=== PATIENT | female | born 1945 | race Caucasian/White ===

== ENCOUNTER 2021-10-06 05:10 | Emergency (ER) | payer MEDICARE, BC ==
[2021-10-06] MEDS ORDERED: Morphine 4 MG/ML VIAL IVPUSH STA ×2 (05:16→05:52)
[2021-10-06] MEDS ORDERED: Pantoprazole 80 MG in Sodium Chloride 0.9% 10 ML IVPUSH ONE (05:17)
[2021-10-06] MEDS ORDERED: Alum Hydro/Mag Hydro/Simeth XS 15 ML, Lidocaine 2% 5 ML PO ONE ×2 (05:17)
[2021-10-06] MEDS ORDERED: Ondansetron 4 MG/2 ML SDV IVPUSH ONE (05:22)
[2021-10-06] MEDS ORDERED: Lactated Ringers 1,000 ML IV STA (05:29)
[2021-10-06 05:55] LABS: BLOOD UREA NITROGEN,BUN 12 mg/dL (7.0-18.0); CARBON DIOXIDE,CO2 24.3 mmol/L (21.0-32.0); CHLORIDE,CL 101 mmol/L (98-107); GLUCOSE RANDOM 144 mg/dL (74-106); POTASSIUM,K 3.6 mmol/L (3.5-5.1); SODIUM,NA 133 mmol/L (136-145)
[2021-10-06] MEDS ORDERED: Sodium Chloride 0.9% 1,000 ML IV SCH (06:00)
[2021-10-06] MEDS ORDERED: Sodium Chloride 0.9% 1,000 ML IV STA (06:02)
[2021-10-06] MEDS ORDERED: HYDROmorphone 1 MG/ML Syringe IVPUSH STA (06:05)
[2021-10-06] MEDS ORDERED: Iopamidol 755 MG/ML 500 ML Multipack Bottle IVPUSH STA (06:38)
[2021-10-06] MEDS ORDERED: Piperacillin/Tazobactam 3.375 GM in Sodium Chloride 0.9% 50 ML IV ONE (08:40)
== END 2021-10-06 09:42 ==
LOC: MW.ED 05:10
DX: R10.13 Epigastric pain (principal); R10.11 Right upper quadrant pain; Z79.899 Other long term (current) drug therapy; Z20.822 Contact with and (suspected) exposure to COVID-19
CPT/HCPCS: 36415; 74177; 76705; 80053; 83605; 83690; 83735; 84484; 85025; 85610; 93005; 96365; 96375; 99285; A9270; C9113; J1170; J2270; J2405; J2543; J3490; J7030; J7120; Q9967; U0002